=== PATIENT | male | born 2000 | race Caucasian/White ===

== ENCOUNTER → 2021-04-19 | Outpatient (CLI) | payer BC ==
[~2021-04-19] MED LIST: ADVIL100 M1 PO; ASPIRIN 325MG325 MG PO; COLCHICINE 0.60.6 MG PO; FAMOTIDINE20 MG PO; LACTINEX TABLET1 EA PO; LEXAPRO10 MG PO; MEGA BIOTIN10000 MCG PO; MULTIVITAMINS1 EAC1 PO; PROTONIX40 MG PO; VIBRAMYCIN100 MG PO; XYZAL5 MG PO
== END ==
LOC: KOH-I 11:17
DX: J32.9 Chronic sinusitis, unspecified (principal)
CPT/HCPCS: 70486

== ENCOUNTER 2022-01-14 09:45 | Emergency (ER) | payer OTHER, BC | END 2022-01-14 11:30 | disposition left against medical advice (07) | LOC: ER1 09:45 | DX: S13.9XXA Sprain of joints and ligaments of unspecified parts of neck, initial encounter (principal); S80.211A Abrasion, right knee, initial encounter; W05.1XXA Fall from non-moving nonmotorized scooter, initial encounter; Y92.410 Unspecified street and highway as the place of occurrence of the external cause | CPT/HCPCS: 71046; 72125; 73562; 90471; 90714; 99281 ==